=== PATIENT | female | born 1990 | race Caucasian/White ===

== ENCOUNTER 2016-05-01 22:23 | Emergency (ER) | payer BC, MEDICARE, MEDICAID ==
[2016-05-02] MEDS ORDERED: ACETAMINOPHEN 325 MG TAB ONE ×2 (02:30→02:34)
== END 2016-05-02 04:29 | disposition home or self-care (01) ==
LOC: ER 22:23
DX: J20.8 Acute bronchitis due to other specified organisms (principal)
CPT/HCPCS: 36415; 71020; 80053; 83605; 85025; 87040; 87804; 87880